=== PATIENT | female | born 1960 | race Caucasian/White ===

== ENCOUNTER → 2017-07-23 | Outpatient (CLI) | payer BC ==
--- NOTE | 2017-07-27 10:14 | PCVCIMAG ---
APPROVED REPORT Exam: Stress Echocardiogram Indication: Palpitations Patient Location: Echo lab Stress Nurse: Kristy Glover RN Status: routine Ht: 5 ft 4 in HR: 56 bpm BP: 120/82 mmHg Rhythm: NSR Procedure The patient underwent an Exercise Stress Test using the Ervin Protocol. Blood pressure, heart rate, and EKG were monitored. An Echocardiogram was performed by retread technician in four stages in quad fashion. At peak stress, four selected images were obtained and placed side by side with resting images for comparison. Stress Test Details Stress Test: Exercise stress testing was performed using a Ervin protocol. HR Resting HR: 56 bpmMax Heart Rate (APMHR): 165 bpm Max HR Achieved: 176 bpmTarget HR (85% APMHR): 140 bpm % of APMHR: 106 Recovery HR: 98 bpm HR response to stress: Normal HR response to stress BP Resting BP: 120/82 mmHg Max BP: 158/84 mmHg Recovery BP: 124/64 mmHg ECG Resting ECG: Sinus Bradycardia Stress ECG: Sinus Rhythm Recovery ECG: Sinus Rhythm Clinical Reason for Termination: Maximal effort Exercise duration: 12 min 44 sec Highest Stage Achieved: Stage 5: 5.0 mph at 18% grade. Exercise capacity: 16.00 METs Overall Exercise Capacity for Age: Good Stress ECG Conclusion 1. SUBJECTIVELY NEGATIVE FOR ISCHEMIA 2. ELECTROCARDIOGRAPHICALLY NEGATIVE FOR ISCHEMIA 3. ADEQUATE FUNCTIONAL CAPACITY Pre-Stress Echo The resting Echocardiogram showed normal left ventricular contractility with an estimated Ejection Fraction of about >55%. Normal wall motion in all segments on baseline images. Post-Stress Echo The stress Echocardiogram showed normal left ventricular contractility with an estimated Ejection Fraction of about 60-65%. Normal augmentation of wall motion in all segments on post stress images. Clinical No clinical or ECG evidence for ischemia. Conclusion Clinical Response: Non-ischemic Exercise Capacity: Average Stress ECG Response: Non-ischemic Stress Echo Images: Non-ischemic 1. LOW RISK STUDY Other Information Study Quality: Adequate <Conclusion> 1. LOW RISK STUDY
== END | disposition home or self-care (01) ==
LOC: PCVCIMAG 15:02
PROVIDERS: ATTEND Internal Medicine
DX: R00.2 Palpitations (principal); R00.1 Bradycardia, unspecified; Z87.898 Personal history of other specified conditions
CPT/HCPCS: 93005; 93325; 93351